=== PATIENT | female | born 1995 | race Caucasian/White ===

== ENCOUNTER 2016-06-01 12:24 | Emergency (ER) | payer MEDICAID, OTHER ==
--- NOTE | 2016-06-01 12:42 | ER Document Report ---
ED Medical Screen (RME) - General Stated Complaint: DIZZY Mode of Arrival: Wheelchair Information source: Patient Notes: Patient reports a syncopal episode 2, 2 days ago. Patient reports having chest pain off and on for the past several months. Patient complains of left arm numbness in bilateral lower extremity numbness. No cough or cold symptoms. Patient traveled from [place] last week. hx: None I have greeted and performed a rapid initial assessment of this patient. A comprehensive ED assessment and evaluation of the patient, analysis of test results and completion of the medical decision making process will be conducted by additional ED providers. - Related Data Allergies/Adverse Reactions: No Known Allergies Allergy (Verified 06/01/16 12:39) Physical Exam - Cardiovascular Rhythm: Regular Heart sounds: S1 appreciated, S2 appreciated Murmur: No
[2016-06-01 14:35] LABS: ABSOLUTE EOSINOPHILS # (AUTO) 0.1 10^3/uL (0.0-0.6); ABSOLUTE LYMPHOCYTES (AUTO) 1.2 10^3/uL (0.5-4.7); ABSOLUTE MONOCYTES (AUTO) 0.5 10^3/uL (0.1-1.4); ABSOLUTE NEUT (AUTO) 5.1 10^3/uL (1.7-8.2); BASOPHILS % (AUTO) 0.4 % (0-2); EOSINOPHILS % (AUTO) 0.9 % (0-6); HEMATOCRIT 31.1 % (36.0-47.0); HEMOGLOBIN 10.1 g/dL (12.0-15.5); HGB HCT DIFFERENCE -0.8; LYMPHOCYTES % (AUTO) 17.6 % (13-45); MEAN CORPUSCULAR HEMOGLOBIN 23.1 pg (27.0-33.4); MEAN CORPUSCULAR HGB CONC 32.4 g/dL (32.0-36.0); MEAN CORPUSCULAR VOLUME 71 fl (80-97); MONOCYTES % (AUTO) 6.8 % (3-13); RED BLOOD COUNT 4.35 10^6/uL (3.72-5.28); RED CELL DISTRIBUTION WIDTH 15.8 % (11.5-14.0); SEGMENTED NEUTROPHILS % (AUTO) 74.3 % (42-78); WHITE BLOOD COUNT 6.8 10^3/uL (4.0-10.5)
[2016-06-01 14:49] LABS: ALANINE AMINOTRANSFERASE 17 U/L (5-35); ALBUMIN 3.4 g/dL (3.7-5.6); ALKALINE PHOSPHATASE 76 U/L (50-135); ANION GAP 10 (5-19); ASPARTATE AMINO TRANSFERASE 13 U/L (5-30); BILIRUBIN,TOTAL 0.6 mg/dL (0.2-1.3); BLOOD UREA NITROGEN 8 mg/dL (7-20); CALCIUM 9.4 mg/dL (8.4-10.2); CARBON DIOXIDE 25 mmol/L (22-30); CHLORIDE 107 mmol/L (98-107); CREATININE RESULT 0.75 mg/dL (0.52-1.25); GLUCOSE 90 mg/dL (75-110); POTASSIUM 3.8 mmol/L (3.6-5.0); SODIUM 141.6 mmol/L (137-145); TOTAL PROTEIN 6.8 g/dL (6.3-8.2)
--- NOTE | 2016-06-01 15:06 | ER Document Report ---
ED Neuro Symptoms/Deficit - General Chief Complaint: Numbness of Arm Stated Complaint: DIZZY Time seen by provider: 15:00 Mode of Arrival: Wheelchair Information source: Patient Notes: 20 yo obese female came to er because her left hand first got numb then down into the left leg started to go numb at 11:15 am, while walking out of [facility]. Also had a little retrosternal central chest pain that radiated to the right for 1 hour. From the left elbow and knee down are still "weird numbing type pain ". No headache. This has never happened before. No fever. No URI symptom. No dysuria. No abdominal pain. Hx hypoglycemia, d & C in february. . Drove here from [place] last friday. after umbilical peircing, went to [facility] and had to sit down due to dizziness/lightheaded. Then passed out, she turned white, shakey, couldnt see or hear per her sister that was there. Also had retrosternal tight pressure (sitting on her) into both sides of chest all night. Went to [place] [facility] friday, ran tests, ekg was OK. told to f/u with her MR in [place]. - Related Data Allergies/Adverse Reactions: No Known Allergies Allergy (Verified 06/01/16 12:39) Past Medical History - General Information source: Patient - Social History Smoking Status: Never Smoker Chew tobacco use (# tins/day): No Frequency of alcohol use: None Drug Abuse: None Lives with: Spouse/Significant other Family History: Other - PE Patient has suicidal ideation: No Patient has homicidal ideation: No - Medical History Medical History: Negative Renal/ Medical History: Denies: Hx Peritoneal Dialysis Past Surgical History: Reports: Hx Gynecologic Surgery - d&c 02/27 Review of Systems - Review of Systems Constitutional: No symptoms reported EENT: No symptoms reported Cardiovascular: See HPI Respiratory: No symptoms reported Gastrointestinal: No symptoms reported Genitourinary: No symptoms reported Female Genitourinary: No symptoms reported Musculoskeletal: No symptoms reported Skin: No symptoms reported Hematologic/Lymphatic: No symptoms reported Neurological/Psychological: See HPI Physical Exam - Vital signs Vitals: Pulse BP Pulse Ox 90 139/72 H 99 06/01/16 12:39 06/01/16 12:39 06/01/16 12:39 Interpretation: Normal - General General appearance: Appears well, Alert - HEENT Head: Normocephalic, Atraumatic Eyes: Normal Conjunctiva: Normal Pupils: PERRL Mouth/Lips: Normal Mucous membranes: Normal Pharynx: Normal Neck: Supple. No: Lymphadenopathy - Respiratory Respiratory status: No respiratory distress Chest status: Nontender Breath sounds: Normal Chest palpation: Normal - Cardiovascular Rhythm: Regular Heart sounds: Normal auscultation Murmur: No - Abdominal Inspection: Normal Distension: No distension Bowel sounds: Normal Tenderness: Nontender. No: Tender Organomegaly: No organomegaly - Back Back: Normal, Nontender. No: CVA tenderness - Extremities General upper extremity: Normal inspection, Nontender, Normal color, Normal ROM , Normal temperature General lower extremity: Normal inspection, Nontender, Normal color, Normal ROM , Normal temperature, Normal weight bearing. No: Clint's sign - Neurological Neuro grossly intact: Yes Cognition: Normal Orientation: AAOx4 Shikha Coma Scale Eye Opening: Spontaneous Shikha Coma Scale Verbal: Oriented Shikha Coma Scale Motor: Obeys Commands [place] Coma Scale Total: 15 Speech: Normal Motor strength normal: LUE, RUE, LLE, RLE Sensory: Normal Notes: gait stable, when she walks states she still has tingling to her platar left foot. - Psychological Associated symptoms: Normal affect, Normal mood - Skin Skin Temperature: Warm Skin Moisture: Dry Skin Color: Normal Skin irregularity: negative: Rash Course - Re-evaluation Re-evalutation: 06/01/16 16:[address] jose, since pt takes Oral contraceptives, he wants cpk, d dimer, and trop I added. Other labs are normal, ekg NSR, chest xray negative. 06/01/16 17:38 D-dimer is elevated so she will be getting a CTA and I explained this to the patient., Dr. Jose consult for CTA. 06/01/16 19:02 CTA is negative and giving patient all copies of everything done today so she can take it to her [place] - Vital Signs Vital signs: Temp Pulse Resp BP Pulse Ox 97.8 F 80 14 122/68 99 06/01/16 12:40 06/01/16 16:16 06/01/16 16:16 06/01/16 16:16 06/01/16 16:16 - Laboratory Result Diagrams: 06/01/16 14:15 06/01/16 14:15 Laboratory results interpreted by me: 06/01/16 06/01/16 06/01/16 14:15 14:15 14:15 Hgb 10.1 L Hct 31.1 L MCV 71 L MCH 23.1 L RDW 15.8 H D-Dimer 0.74 H Albumin 3.4 L Discharge - Discharge Clinical Impression: left arm, left leg paresthesias, Chest pain Condition: Good Disposition: HOME, SELF-CARE Instructions: Chest Pain of Unclear Cause ([facility]), Numbness or Paresthesia ([facility]) Additional Instructions: see your doctor in [place] when you get home take all the labs/imaging results with you to er sooner if worse
--- NOTE | 2016-06-01 18:38 | EKG REPORT ---
SEVERITY:- NORMAL ECG - SINUS RHYTHM : Confirmed by: Yajaira Grove 01-Jun-2016 18:36:52
[2016-06-01 19:34] VITALS: BP 127/83
== END 2016-06-01 19:25 | disposition home or self-care (01) ==
LOC: ER 12:24
DX: R20.0 Anesthesia of skin (principal); R07.9 Chest pain, unspecified; R42 Dizziness and giddiness
CPT/HCPCS: 36415; 71020; 71275; 80053; 82550; 84484; 84703; 85025; 85379; 93005; 93010; 99284